=== PATIENT | male | born 1975 | race Caucasian/White ===

== ENCOUNTER 2018-05-29 11:18 | Emergency (ER) | payer MEDICAID, OTHER ==
--- NOTE | 2018-05-29 11:51 | ED ---
Back Pain - HPI Summary HPI Summary: Pt is a 42 y/o male who presents to the ED c/o back pain. 5 days ago he slipped on ice on his deck and fell down 3 feet. Pt landed on the left side of his low back, left ribs, and left elbow. He now notes increased pain and bruising, and rates the pain as a 5/10 in severity. Pt states that he feels a clicking sensation when he rotates his back. He denies any pain with breathing. 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 - History of Current Complaint Chief Complaint: EDTraumaMultiple Stated Complaint: FELL/BACK PAIN Hx Obtained From: Patient Onset/Duration: Sudden Onset, Lasting Days - 5 Onset/Duration: Worse Since Timing: Constant Back Pain Location: Is Discrete @ - low back, left elbow, left rib Severity Currently: Moderate Pain Intensity: 5 Pain Scale Used: 0-10 Numeric Aggravating Symptom(s): Movement Alleviating Symptom(s): Nothing Associated Signs And Symptoms: Positive: Negative - Allergies/Home Medications Allergies/Adverse Reactions: Allergies Allergy/AdvReac Type Severity Reaction Status Date / Time No Known Allergies Allergy Verified 05/29/18 11:27 PMH/Surg Hx/FS Hx/Imm Hx Neurological History: Reports: Other Neuro Impairments/Disorders - Insomnia Psychiatric History: Reports: Hx Anxiety, Hx Depression, Hx Bipolar Disorder Infectious Disease History: No Infectious Disease History: Denies: Traveled Outside the [place] in Last 30 Days - Family History Known Family History: Negative: Hypertension, Diabetes - Social History Alcohol Use: Occasionally Hx Substance Use: No Substance Use Type: Reports: None Hx Tobacco Use: Yes Smoking Status (MU): Current Every Day Smoker Review of Systems Negative: Other - pain with breathing Positive: Myalgia - back, Other - clicking sensation when rotating back Positive: Bruising All Other Systems Reviewed And Are Negative: Yes Physical Exam - Summary Physical Exam Summary: Appearance: Well appearing, no pain distress Skin: warm, dry, reflects adequate perfusion, redness to left posterior ninth rib Head/face: normal Eyes: EOMI, ALEIDA ENT: mucous membranes moist Neck: supple, non-tender Respiratory: CTA, breath sounds present Cardiovascular: RRR, pulses symmetrical Abdomen: non-tender, soft Bowel Sounds: present Musculoskeletal: strength/ROM intact, mild left-sided low lumbar discomfort with flexion, no palpable tenderness Neuro: normal, sensory motor intact, A&Ox3 Triage Information Reviewed: Yes Vital Signs On Initial Exam: Initial Vitals Temp Pulse Resp BP Pulse Ox 97.8 F 97 19 140/92 96 05/29/18 11:21 05/29/18 11:21 05/29/18 11:21 05/29/18 11:21 05/29/18 11:21 Vital Signs Reviewed: Yes Diagnostics - Vital Signs Vital Signs Temp Pulse Resp BP Pulse Ox 05/29/18 11:21 97.8 F 97 19 140/92 96 - Laboratory Lab Statement: Any lab studies that have been ordered have been reviewed, and results considered in the medical decision making process. - Radiology Lumbar Spine XR Radiology Interpretation Completed By: Radiologist Summary of Radiographic Findings: MILD DEGENERATIVE DISC DISEASE AND OSTEOARTHRITIS. NO ACUTE OSSEOUS INJURY TO THE LUMBAR SPINE. ED physician reviewed radiology report. Back Pain Course/Dx - Course Course Of Treatment: Nurse's notes reviewed. Patient with musculoskeletal complaints after fall on ice several days ago. Most significant discomfort is just above the sacrum. X-rays are negative. Moves freely. Treat symptomatically. Follow-up primary care. - Diagnoses Differential Diagnosis/HQI/PQRI: Positive: Fracture, Strain, Sprain Provider Diagnoses: Chest wall contusion, Lumbar contusion Discharge - Sign-Out/Discharge Documenting (check all that apply): Patient Departure - Discharge Patient Received Moderate/Deep Sedation with Procedure: No - Discharge Plan Condition: Improved Disposition: HOME Prescriptions: Cyclobenzaprine (NF) [Cyclobenzaprine 5 MG (NF)] 5 mg PO TID PRN #12 tab PRN Reason: muscle pain Naproxen [Naproxen 500 mg tab] 500 mg PO BID PRN #10 tablet PRN Reason: Pain Patient Education Materials: Contusion in Adults (ED), Rib Contusion (ED) Referrals: Care [facility] [Outside] [facility] [Outside] Additional Instructions: Stay well-hydrated. Range of motion exercises. managed care specialist as needed. Ice sore areas. Return if worse, new symptoms or other concerns. He can follow -up with care [facility] in next 1-2 days and primary care referral line has been provided to you. - Billing Disposition and Condition Condition: IMPROVED Disposition: Home - Attestation Statements Document Initiated by Scribe: Yes Documenting Scribe: Payton Azari Provider For Whom Scribe is Documenting (Include Credential): Kenny Sharma MD Scribe Attestation: IPayton, scribed for Kenny Sharma MD on 05/29/18 at 1532. Scribe Documentation Reviewed: Yes Provider Attestation: The documentation as recorded by the Payton serra accurately reflects the service I personally performed and the decisions made by me, Kenny Sharma MD Status of Scribe Document: Viewed
[2018-05-29] MEDS ORDERED: Naproxen TAB* 250 MG PO ONE (11:54)
[2018-05-29 12:27] VITALS: BP 109/89
== END 2018-05-29 12:34 | disposition home or self-care (01) ==
LOC: ED 11:18
DX: S20.212A Contusion of left front wall of thorax, initial encounter (principal); S30.0XXA Contusion of lower back and pelvis, initial encounter; W00.2XXA Other fall from one level to another due to ice and snow, initial encounter; Y92.008 Other place in unspecified non-institutional (private) residence as the place of occurrence of the external cause; M51.36 Other intervertebral disc degeneration, lumbar region; M47.816 Spondylosis without myelopathy or radiculopathy, lumbar region; F17.200 Nicotine dependence, unspecified, uncomplicated
CPT/HCPCS: 72100; 99282; A9270-GY

== ENCOUNTER 2018-12-30 09:23 | Emergency (ER) | payer SELFPAY ==
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
[2018-12-30 10:50] VITALS: BP 126/92
== END 2018-12-30 10:47 | disposition home or self-care (01) ==
LOC: ED 09:23
DX: S00.83XA Contusion of other part of head, initial encounter (principal); R20.2 Paresthesia of skin; Y04.2XXA Assault by strike against or bumped into by another person, initial encounter; Y92.9 Unspecified place or not applicable; F41.9 Anxiety disorder, unspecified; F31.9 Bipolar disorder, unspecified; F17.200 Nicotine dependence, unspecified, uncomplicated; Z79.899 Other long term (current) drug therapy
CPT/HCPCS: 70450; 70486; 99282

== ENCOUNTER 2018-12-31 18:26 | Emergency (ER) | payer SELFPAY ==
[2018-12-31] MEDS ORDERED: Ketorolac INJ* 30 MG/ML 1 ML VIAL IM ONE (20:10)
[2018-12-31 20:12] LABS: ABS Eosinophils 0.2 10^3/ul (0-0.6); ABS Lymphocytes 1.3 10^3/ul (1.0-4.8); ABS Monocytes 0.8 10^3/ul (0-0.8); Eosinophil % 2.1 %; Hematocrit 42 % (42-52); Hemoglobin 14.7 g/dL (14.0-18.0); Lymphocyte % 16.1 %; Mean Corpuscular HGB Conc 35 g/dL (31-36); Mean Corpuscular Hemoglobin 32 pg (27-31); Mean Corpuscular Volume 91 fL (80-94); Mean Platelet Volume 7.2 fL (7.4-10.4); Platelet Count 328 10^3/uL (150-450); Red Blood Count 4.63 10^6 /uL (4.18-5.48); Red Cell Distribution Width 14 % (10-15); White Blood Count 8.3 10^3/uL (3.5-10.8)
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
[2018-12-31 20:17] LABS: INR 0.91 (0.82-1.09)
[2018-12-31 20:28] LABS: Albumin 4.2 g/dL (3.2-5.2); Albumin/Globulin Ratio 1.5 (1-3); C Reactive Protein 13.7 mg/L (<8.01); Calcium 9.2 mg/dL (8.6-10.3); EGFR African American 115.9 (>60); EGFR Non-African American 95.8 (>60); Globulin 2.8 g/dL (2-4); Potassium 3.9 mmol/L (3.5-5.0); Total Bilirubin 0.2 mg/dL (0.2-1.0)
[2018-12-31] MEDS ORDERED: Clindamycin CAP* 150 MG PO ONE (20:39)
[2018-12-31 21:18] VITALS: BP 128/76
== END 2018-12-31 21:17 | disposition home or self-care (01) ==
LOC: ED 18:26
DX: K08.89 Other specified disorders of teeth and supporting structures (principal); F17.210 Nicotine dependence, cigarettes, uncomplicated; F41.9 Anxiety disorder, unspecified; F32.9 Major depressive disorder, single episode, unspecified; G47.00 Insomnia, unspecified
CPT/HCPCS: 36415; 80053; 83605; 85025; 85610; 86140; 87040; 96372; 99283; A9270-GY; J1885